=== PATIENT | female | born 1975 | race Caucasian/White ===

== ENCOUNTER 2021-02-13 09:55 | Outpatient (CLI) | payer BC | END 2021-02-13 09:56 | disposition home or self-care (01) | LOC: CSHLAB 09:55 | PROVIDERS: ATTEND Student in an Organized Health Care Education/Training Program | DX: Z01.812 Encounter for preprocedural laboratory examination (principal); Z20.822 Contact with and (suspected) exposure to COVID-19; N81.2 Incomplete uterovaginal prolapse | CPT/HCPCS: 84703; 85027; 86850; 86900; 86901; U0003; U0005 ==

== ENCOUNTER 2021-02-18 05:52 | Day surgery (SDC) | payer BC ==
[2021-02-13 10:57] LABS: Hemoglobin 12.8 g/dL (12.0-15.5); Mean Corpuscular HGB CONC 33.5 g/dL (32.0-36.0); Mean Corpuscular Hemoglobin 31.6 pg (27.0-33.0); Mean Corpuscular Volume 94.3 fl (81.6-98.3); Platelet Count 305 10x3/uL (150-450); Red Blood Cell (RBC) Count 4.05 10x6/uL (3.90-5.03); White Blood Cell (WBC) Count 5.2 10x3/uL (3.5-10.5)
[2021-02-13 11:15] LABS: BHCG - Serum Negative (NEGATIVE); Pregs Control Background? CLEAR/WHITE (CLR/WHITE); Pregs Control Bar Appear? YES (CONTROL BAR)
[2021-02-13 17:35] LABS: SARS-CoV-2 PCR by NAA Not Detected (NotDetected)
[2021-02-17 09:46] VITALS: BMI 19.4
[2021-02-18] MEDS ORDERED: Lidocaine 1% MPF 2 ML VIAL ONE (06:10)
[2021-02-18] MEDS ORDERED: CeleCOXIB 100 MG CAP ONE (06:11)
[2021-02-18] MEDS ORDERED: Famotidine/PF 20 mg/2ml Vial ONE (06:11)
[2021-02-18] MEDS ORDERED: Gabapentin 300 MG CAP ONE (06:11)
[2021-02-18] MEDS ORDERED: Midazolam HCl 2 mg/2 ml Vial ONE ×2 (06:35→07:21)
[2021-02-18] MEDS ORDERED: Lidocaine 1% PF 5 ML VIAL ONE (06:35)
[2021-02-18] MEDS ORDERED: Rocuronium Bromide 10 MG/ML (10ML VIAL) ONE (06:35)
[2021-02-18] MEDS ORDERED: Fentanyl 250 MCG/5 ML VIAL ONE (06:35)
[2021-02-18] MEDS ORDERED: PROPOFOL 20 ML ONE (06:35)
[2021-02-18] MEDS ORDERED: Dexamethasone 20 MG/5 ML VIAL ONE (06:35)
[2021-02-18] MEDS ORDERED: Ketorolac Tromethamine 30 MG/ML VIAL ONE (06:35)
[2021-02-18] MEDS ORDERED: Ondansetron PF 4 MG/2 ML Vial ONE (06:35)
[2021-02-18] MEDS ORDERED: EPINEPHrine 1 MG/ML AMP ONE (06:38)
[2021-02-18] MEDS ORDERED: Bupivacaine PF 0.5% 30 ML VIAL ONE (06:38)
[2021-02-18] MEDS ORDERED: Lidocaine 1% w/Epinephrine 1:200K 30 ML VIAL ONE (06:39)
[2021-02-18] MEDS ORDERED: Lidocaine 0.5%/Epinephrine 1:200,000 50 ml Vial ONE (06:39)
[2021-02-18] MEDS ORDERED: PHENYLEPHRINE-NS 100 MCG/ML 10 ML SYRINGE ONE (07:44)
[2021-02-18] MEDS ORDERED: ePHEDrine Sulfate 50 MG/10 ML VIAL ONE (07:54)
[2021-02-18] MEDS ORDERED: Glycopyrrolate 0.2 MG/ML 5 ML SYRINGE ONE (09:23)
[2021-02-18] MEDS ORDERED: diphenhydrAMINE 25 MG CAP PO PRN (10:19)
[2021-02-18] MEDS ORDERED: Simethicone Chewable 80 MG TAB PO PRN (10:19)
[2021-02-18] MEDS ORDERED: Bisacodyl 10 MG SUPP PR PRN (10:19)
[2021-02-18] MEDS ORDERED: Zolpidem Tartrate 5 MG TAB PO PRN (10:19)
[2021-02-18] MEDS ORDERED: Promethazine HCl 25 MG/ML VIAL IM PRN (10:19)
[2021-02-18] MEDS ORDERED: Ondansetron PF 4 MG/2 ML Vial IVP PRN (10:19)
[2021-02-18] MEDS ORDERED: Morphine 4 MG/ML VIAL SLOW IVP PRN ×2 (10:19→11:38)
[2021-02-18] MEDS ORDERED: HYDROcodone/Acetaminophen 5/325 mg Tablet PO PRN ×2 (10:19)
[2021-02-18] MEDS ORDERED: SUMAtriptan Succinate 50 MG TAB PO PRN (10:25)
[2021-02-18] MEDS: Ketorolac Tromethamine 30 MG/ML VIAL IVP SCH ×2 (12:15→17:39)
[2021-02-18] MEDS: Sodium Chloride 0.9% 1,000 ML IV SCH ×2 (12:15→23:50)
[2021-02-18] MEDS: Nitroglycerin 0.4 MG TAB (25 Tab Bottle) ONE ×2 (12:56→13:24)
[2021-02-18] MEDS ORDERED: Nitroglycerin 0.4 MG TAB (25 Tab Bottle) SL PRN (12:56)
[2021-02-18] MEDS ORDERED: Fentanyl 100 MCG/2 ML VIAL SLOW IVP PRN (12:59)
[2021-02-18 13:27] LABS: #Monocytes 0.2 10x3/uL (0.0-1.1); #Neutrophils 13.3 10x3/uL (1.5-8.4); %Basophils 0.1 % (0.0-2.0); %Lymphocytes 7.1 % (18.0-47.0); %Monocytes 1.3 % (0.0-10.0); %Neutrophils 91.2 % (40.0-75.0); Hemoglobin 10.6 g/dL (12.0-15.5); Mean Corpuscular Hemoglobin 31.5 pg (27.0-33.0); Mean Corpuscular Volume 92.9 fl (81.6-98.3); Mean Platelet Volume 9.3 fl (7.4-10.4); Platelet Count 260 10x3/uL (150-450); Red Blood Cell (RBC) Count 3.36 10x6/uL (3.90-5.03); White Blood Cell (WBC) Count 14.6 10x3/uL (3.5-10.5)
[2021-02-18] MEDS ORDERED: Fentanyl 100 MCG/2 ML VIAL ONE (13:27)
[2021-02-18] MEDS ORDERED: Sodium Chloride 0.9% 500 ML IV SCH (13:30)
[2021-02-18] MEDS ORDERED: Pantoprazole 40 MG VIAL IVP SCH (13:30)
[2021-02-18 13:44] LABS: ALT (SGPT) 10 U/L (8-55); AST (SGOT) 16 U/L (5-34); Albumin 3.6 g/dL (3.5-5.0); Alkaline Phosphatase 27 U/L (40-110); Anion Gap 13 mmol/L (10-20); BUN (Urea Nitrogen) 9 mg/dL (7.0-18.7); Bilirubin, Total 0.4 mg/dL (0.2-1.2); CK (CPK) 75 U/L (29-168); Calc. Creatinine Clearance 86 mL/min (70-130); Calcium 8.1 mg/dL (7.8-10.44); Carbon Dioxide 16 mmol/L (22-29); Chloride 108 mmol/L (98-107); Globulin 1.7 g/dL (2.4-3.5); Glucose 145 mg/dL (70-105); Potassium 3.4 mmol/L (3.5-5.1); Protein, Total 5.3 g/dL (6.0-8.3); Sodium 134 mmol/L (136-145)
[2021-02-18 14:10] LABS: CKMB 1.5 ng/mL (0-6.6)
[2021-02-18] MEDS: Docusate 100 MG CAP PO SCH (21:56)
[2021-02-19] MEDS: Ketorolac Tromethamine 30 MG/ML VIAL IVP SCH ×2 (00:03→06:44)
[2021-02-19] MEDS ORDERED: Sodium Chloride 0.9% 1,000 ML IV SCH (03:00)
[2021-02-19 04:14] LABS: Hemoglobin 9.4 g/dL (12.0-15.5); Mean Corpuscular HGB CONC 34.1 g/dL (32.0-36.0); Mean Corpuscular Hemoglobin 31.8 pg (27.0-33.0); Mean Corpuscular Volume 93.2 fl (81.6-98.3); Mean Platelet Volume 9.6 fl (7.4-10.4); Platelet Count 181 10x3/uL (150-450); RBC Distribution Width 12.2 % (11.5-14.5); Red Blood Cell (RBC) Count 2.96 10x6/uL (3.90-5.03); White Blood Cell (WBC) Count 7.3 10x3/uL (3.5-10.5)
[2021-02-19] MEDS ORDERED: Acetaminophen/Codeine 30-300mg Tablet PO PRN ×2 (08:21)
[2021-02-19] MEDS: Docusate 100 MG CAP PO SCH (08:50)
[2021-02-19] MEDS ORDERED: Pantoprazole 40 MG VIAL IVP SCH (09:00)
[2021-02-19] MEDS ORDERED: Potassium Chloride 20 MEQ TAB PO SCH (09:00)
[2021-02-19] MEDS ORDERED: Enoxaparin Sodium 40 MG/0.4 ML SYRINGE SC SCH (09:00)
[2021-02-19] MEDS: Sodium Chloride 0.9% 1,000 ML IV SCH (12:27)
[2021-02-19 17:05] VITALS: BP 113/59; TEMP 98.7
[2021-02-23] MEDS ORDERED: Ibuprofen 800 MG TAB PO SCH (14:00)
== END 2021-02-19 17:09 | disposition home or self-care (01) ==
LOC: CSHSDC 05:52 → CSHPED 11:32 → UNDOADMIN 11:32 → CSHTELE 15:02 → CSHPED 15:02 → UNDODISIN 02-19 17:09 → CSHSDC 02-19 17:09
PROVIDERS: ATTEND Student in an Organized Health Care Education/Training Program
PROC: 0UT74ZZ Resection of Bilateral Fallopian Tubes, Percutaneous Endoscopic Approach (ICD-10-PCS; principal; 2021-02-18)
PROC: 0HQ9XZZ Repair Perineum Skin, External Approach (ICD-10-PCS; principal; 2021-02-18)
PROC: 0USG4ZZ Reposition Vagina, Percutaneous Endoscopic Approach (ICD-10-PCS; principal; 2021-02-18)
PROC: 0TSD0ZZ Reposition Urethra, Open Approach (ICD-10-PCS; principal; 2021-02-18)
PROC: 0JQC0ZZ Repair Pelvic Region Subcutaneous Tissue and Fascia, Open Approach (ICD-10-PCS; principal; 2021-02-18)
PROC: 0UT94ZZ Resection of Uterus, Percutaneous Endoscopic Approach (ICD-10-PCS; principal; 2021-02-18)
DX: N81.3 Complete uterovaginal prolapse (principal); N72 Inflammatory disease of cervix uteri; N80.0 Endometriosis of uterus; N83.8 Other noninflammatory disorders of ovary, fallopian tube and broad ligament; N39.3 Stress incontinence (female) (male); N32.81 Overactive bladder; M06.9 Rheumatoid arthritis, unspecified; I95.9 Hypotension, unspecified; R07.89 Other chest pain; K76.89 Other specified diseases of liver; Z79.899 Other long term (current) drug therapy; Z88.2 Allergy status to sulfonamides; Z88.5 Allergy status to narcotic agent; Z20.822 Contact with and (suspected) exposure to COVID-19
CPT/HCPCS: 36415; 36416; 71045; 71275; 80053; 82550; 82553; 83880; 84484; 84703; 85025; 85027; 85379; 86850; 86900; 86901; 88307; 93005; 93010; 93970; C1781; C9113; J0171; J0690; J1100; J1650; J1885; J2001; J2250; J2270; J2405; J2704; J3010; J7030; J7050; S0020; S0028; U0003; U0005